=== PATIENT | male | born 1950 | race Caucasian/White ===

== ENCOUNTER → 2020-04-02 | Outpatient (CLI) | payer OTHER ==
--- NOTE | 2020-04-02 14:57 | MR ---
EXAMINATION TYPE: MR shoulder LT wo con DATE OF EXAM: 04/02/2020 1:23 PM COMPARISON: NONE HISTORY: PAIN IN LEFT SHOULDER TECHNIQUE: Multiplanar multispin echo imaging of the left shoulder was performed. FINDINGS: Rotator cuff : There is thickening and heterogeneity of the supraspinatus tendon compatible with lead java programmer wen tendinopathy. There is a full thickness partial tear involving the anterior aspect of the suprasp inatus tendon. Subscapularis and infraspinatus tendons are intact. Bursa: Small joint effusion identified. Musculature: There is no muscular tear, contusion, or atrophy. Acromioclavicular joint : There is AC joint arthropathy with lateral downsloping of the acromion resu lting in moderate impingement. Osseous structures : There are no fractures or regions of abnormal bon e marrow signal intensity. Long biceps tendon : The biceps tendon is normally situated within the bicipital groove. No complete or partial biceps tendon tear is present. Glenohumeral Joint fluid : There is no glenohumeral joint effusion. Cartilage and Bone : No focal hyaline cartilage defects are noted. No Hill-Sachs, reverse Hill-Sachs, or bony Bankart lesions are seen. Labrum : There are no SLAP or soft tissue Bankart lesions. No paralabral cysts are seen. OTHER FINDINGS : none IMPRESSION: 1. There is thickening and heterogeneity of the supraspinatus tendon compatible with chronic tendinop athy. There is a full thickness partial tear involving the anterior aspect of the supraspinatus tendo n. Moderate subacromial impingement.
== END | disposition home or self-care (01) ==
LOC: RADMRIMAIN 12:03
PROVIDERS: ATTEND Nurse Practitioner Acute Care
DX: M75.112 Incomplete rotator cuff tear or rupture of left shoulder, not specified as traumatic (principal); M75.42 Impingement syndrome of left shoulder; M67.814 Other specified disorders of tendon, left shoulder

== ENCOUNTER → 2020-06-12 | Outpatient (CLI) | payer OTHER, MEDICARE ==
[2020-06-12 10:51] LABS: Basophils % (A) 1 %; Eosinophils # (A) 0.2 k/uL (0-0.7); Eosinophils % (A) 4 %; HCT 46.7 % (39.0-53.0); HGB 15.9 gm/dL (13.0-17.5); Lymphocytes # (A) 1.4 k/uL (1.0-4.8); Lymphocytes % (A) 29 %; MCH 31.5 pg (25.0-35.0); MCHC 34.1 g/dL (31.0-37.0); MCV 92.6 fL (80.0-100.0); Mean Platelet Volume 7.4; Monocytes # (A) 0.4 k/uL (0-1.0); Monocytes % (A) 8 %; Neutrophils # (A) 2.8 k/uL (1.3-7.7); Neutrophils % (A) 57 %; Platelet Count 201 k/uL (150-450); RBC 5.04 m/uL (4.30-5.90); RDW 12.6 % (11.5-15.5); WBC 4.9 k/uL (3.8-10.6)
[2020-06-12 10:59] LABS: Potassium 4.2 mmol/L (3.5-5.1)
== END | disposition home or self-care (01) ==
LOC: LABPAT 09:58
PROVIDERS: ATTEND Orthopaedic Surgery
DX: Z01.818 Encounter for other preprocedural examination (principal); M75.42 Impingement syndrome of left shoulder; R00.1 Bradycardia, unspecified; R94.31 Abnormal electrocardiogram [ECG] [EKG]
CPT/HCPCS: 80051; 85025; 93005

== ENCOUNTER 2020-07-04 05:50 | Day surgery (SDC) | payer MEDICARE, OTHER ==
[2020-06-20 12:28] VITALS: BMI 30.8
--- NOTE | 2020-07-03 18:37 | HP ---
HISTORY AND PHYSICAL DATE OF SURGERY: 07/04/2020 Lazaro Mendez is a 70-year-old gentleman seen with progressive left shoulder pain. We discussed options for treatment. He elected to proceed with arthroscopy. Consent was obtained. Cardiac clearance was provided by Dr. Dutta. PAST MEDICAL HISTORY: Coronary artery disease, hypertension, hyperlipidemia. PAST SURGICAL HISTORY: Cardiac catheterization, left knee arthroscopy. DAILY MEDICATIONS: Aspirin, atorvastatin, metoprolol, Nitrostat. SOCIAL HISTORY: He denies tobacco use. PHYSICAL EVALUATION OF THE LEFT SHOULDER: Flexion 90 degrees. Abduction is 90 degrees. External rotation is 50 degrees with weakness. Tenderness along the anterolateral acromion and rotator cuff insertion site. Impingement is positive at 90. Drop-arm sign positive. Distal neurovascular exam is intact. RADIOGRAPHS: Left shoulder radiographs revealed a type 2 acromion, acromioclavicular joint osteoarthritis and cystic changes of the greater tuberosity. Left shoulder MRI revealed rotator cuff tear, impingement and acromioclavicular joint osteoarthritis. IMPRESSION: 1. Left shoulder impingement with rotator cuff tear. 2. Left shoulder acromioclavicular joint osteoarthritis. 3. Hypertension. 4. Hyperlipidemia. PLAN: Left shoulder arthroscopy with subacromial decompression, arthroscopic rotator cuff repair, Raine procedure and debridement. MMODL / IJN: [id number] /
[2020-07-04] MEDS ORDERED: LACTATED RINGERS 1,000 ML IV SCH (06:11)
[2020-07-04] MEDS ORDERED: HYDROmorphone 0.5 MG/0.5 ML SYRINGE IVP PRN (06:11)
[2020-07-04] MEDS ORDERED: ONDANSETRON 4 MG/2 ML VIAL IVP ONE (06:11)
[2020-07-04] MEDS ORDERED: MIDAZOLAM 2 MG/2 ML VIAL IV PRN (06:11)
[2020-07-04] MEDS ORDERED: DEXAMETHASONE SOD PHOSPHATE 4 MG/ML 1 ML VIAL IV ONE (06:11)
[2020-07-04] MEDS ORDERED: fentaNYL (PF) 50 MCG/ML 2 ML AMP IV ONE (07:06)
--- NOTE | 2020-07-04 08:22 | P.ANPRN ---
Procedure Note - Anesthesia - Nerve Block Performed Left Interscalene Single Time Out Performed: Yes ([id number]) Date of Procedure: 07/04/20 Procedure Start Time: 07:06 Procedure Stop Time: 07:10 Location of Patient: PreOp Indication: Acute Post-Operative Pain, Requested by Surgeon Specifically requested for management of pain by DrLarry: Shaka Blue Sedation Type: Sedate with meaningful contact maintained Preparation: Sterile Prep Position: Supine Catheter: None Needle Types: Pajunk Needle Gauge: 21 Ultrasound used to visualize needle placement: Yes Ultrasound used to observe medication spread: Yes Injectate: 0.5% Ropivacaine (see comment for volume) (30cc +decadron 4 cc) Blood Aspirated: No Pain Paresthesia on Injection Noted: No Resistance on Injection: Normal Image Stored and Saved: Yes Events: Uneventful and Well Tolerated
--- NOTE | 2020-07-04 09:48 | P.OP ---
Date of Procedure: 07/04/20 Preoperative Diagnosis: Left shoulder impingement Postoperative Diagnosis: 1. Left shoulder rotator cuff tear 2. Left shoulder impingement 3. Left shoulder acromioclavicular joint osteoarthritis 4. Left shoulder partial long head biceps tendon tear Procedure(s) Performed: 1. Left shoulder arthroscopic rotator cuff repair 2. Left shoulder arthroscopic subacromial decompression 3. Left shoulder arthroscopic Raine procedure 4. Left shoulder arthroscopic biceps tenotomy Implants: 34.75 Arthrex swivel lock anchors Anesthesia: GETA, regional (Interscalene block) Surgeon: Shaka Blue Packaging Line Operator #1: Dave Hook Estimated Blood Loss (ml): 11 Pathology: none sent Condition: stable Disposition: PACU Indications for Procedure: 70-year-old patient seen with progressive left shoulder pain. After treatment options were discussed, he elected to proceed with arthroscopy Operative Findings: see description of procedure Description of Procedure: Patient underwent an interscalene block by department of anesthesia. The patient was then taken to the operative suite. The patient underwent a general anesthetic by the department of anesthesia. The patient was placed into a lateral position and secured. There was appropriate padding of the bony prominence. Left shoulder was then prepped and draped in normal sterile orthopedic fashion. We placed the extremity in 10 pounds of longitudinal traction. A posterior incision was now made for a posterior working portal site. The trocar and cannula were inserted into the glenohumeral joint. Arthroscopy was initiated. Spinal needle was now inserted anteriorly, to ascertain the anterior working portal site. An incision was now made in that area, a trocar was inserted followed by a probe. There was a large rotator cuff tear I couldn't visualize from the glenohumeral joint. There were grade 1 chondromalacia changes of the glenohumeral joint. There was hyperemia and partial tearing long head biceps tendon. There was some mild fraying of the superior labrum. I performed a biceps tenotomy. I debrided the anterior superficial fraying anterior labrum. The residual labrum was stable. Instruments now removed from glenohumeral joint. Utilizing the posterior working portal site, the trocar and cannula were inserted into the subacromial space. Arthroscopy initiated. I made an incision 2 fingerbreadths lateral to the acromion. I introduced my trocar followed by my ArthroCare ablator. I now began ablating thick subacromial bursal tissue, which exposed the undersurface of the anterior acromion. There was diminished subacromial space. There was a very prominent anterior acromion. A motorized bur was introduced and a subacromial decompression was performed. I also excised some osteophytes off the inferior aspect of the distal clavicle. The AC joint was visualized and noted to be fairly arthritic. The motorized bur was introduced in the anterior portal site and a Raine procedure was performed without difficulty, decompressing the AC joint nicely. I turned my attention to the rotator cuff. There was a massive rotator cuff tear with severe retraction beyond the glenoid. The tear measured 4 cm and again retracted beyond the glenoid. I could not pull it over the footprint. I now began meticulously releasing the tendon and selected approximate with [id number] repair for the proximal portion of this large tear. I now with the assistance of Dave CORTEZ passed 5 [id number] sutures through good bites a tendon. I now passed an additional 3 everted mattress sutures were approximate. I now repaired the tendon in a [id number] fashion with good approximation of the tendon. I now repaired the tendon back to the footprint utilizing 3-4.75 Arthrex swivel lock anchors with those residual 3 everted mattress sutures tacking the tendon down the footprint nicely. Residual suture limbs were clipped. We had good compression of the tendon along the entire footprint. Instruments now removed from the portal sites. All portal sites were approximated with nylon suture. Sterile dressings were applied followed by a shoulder sling. Dave CORTEZ assisted in this complex case. The patient was awakened, transferred to a bed, and taken to recovery in stable condition.
[2020-07-04 09:50] VITALS: RESP 16; TEMP 97
[2020-07-04 11:08] VITALS: BP 131/72; PULSE 78
== END 2020-07-04 11:37 | disposition home or self-care (01) ==
LOC: OR 05:50
PROVIDERS: ATTEND Orthopaedic Surgery
DX: M75.102 Unspecified rotator cuff tear or rupture of left shoulder, not specified as traumatic (principal); M19.012 Primary osteoarthritis, left shoulder; S46.112A Strain of muscle, fascia and tendon of long head of biceps, left arm, initial encounter; X58.XXXA Exposure to other specified factors, initial encounter; I35.9 Nonrheumatic aortic valve disorder, unspecified; E78.00 Pure hypercholesterolemia, unspecified; I25.10 Atherosclerotic heart disease of native coronary artery without angina pectoris; I77.9 Disorder of arteries and arterioles, unspecified; Z81.8 Family history of other mental and behavioral disorders; Z82.49 Family history of ischemic heart disease and other diseases of the circulatory system; Z80.1 Family history of malignant neoplasm of trachea, bronchus and lung; Z90.89 Acquired absence of other organs; Z98.890 Other specified postprocedural states; I10 Essential (primary) hypertension; J30.2 Other seasonal allergic rhinitis; Z95.5 Presence of coronary angioplasty implant and graft; E78.5 Hyperlipidemia, unspecified; Z88.8 Allergy status to other drugs, medicaments and biological substances; Z79.82 Long term (current) use of aspirin; Z79.899 Other long term (current) drug therapy
CPT/HCPCS: 64415; 76942; 29826; 29827; 29824; C1713 ×2; J2250; J1100; J0690; J2405; J3010

== ENCOUNTER → 2021-06-25 | Outpatient (CLI) | payer MEDICARE ==
[2021-06-25 23:31] LABS: Basophils # (A) 0.06 X 10*3/uL (0.00-0.10); Basophils % (A) 0.8 %; Eosinophils % (A) 2.7 %; HCT 46.9 % (39.6-50.0); HGB 15.4 g/dL (13.0-17.0); Immature Grans, Automated 0.4 %; Lymphocytes # (A) 1.55 X 10*3/uL (0.90-5.00); Lymphocytes % (A) 20.6 %; MCH 30.4 pg (27.0-32.0); MCHC 32.8 g/dL (32.0-37.0); MCV 92.7 fL (80.0-97.0); Mean Platelet Volume 10.2 fL (9.5-12.2); Monocytes % (A) 10.6 %; NRBC Per 100 WBC 0 /100 WBCS (0.0-0.0); Neutrophils # (A) 4.89 X 10*3/uL (1.80-7.70); Neutrophils % (A) 64.9 %; Platelet Count 218 X 10*3/uL (140-440); RBC 5.06 X 10*6/uL (4.40-5.60); RDW 13.2 % (11.5-14.5); WBC 7.53 X 10*3/uL (4.50-10.00)
[2021-06-25 23:48] LABS: Albumin 4.4 g/dL (3.8-4.9); Anion Gap 14.2 mmol/L (10.00-18.00); BUN/Creat Ratio 12.9 Ratio (12.00-20.00); Blood Urea Nitrogen 13.8 mg/dL (9.0-27.0); Calcium 9.8 mg/dL (8.7-10.3); Carbon Dioxide 23.3 mmol/L (20.0-27.5); Globulin 2.2 g/dL (1.6-3.3); Potassium 4.8 mmol/L (3.5-5.5); Total Bilirubin 0.6 mg/dL (0.30-1.20); Total Protein 6.6 g/dL (6.2-8.2)
== END | disposition home or self-care (01) ==
LOC: LABWHC1 15:00
PROVIDERS: ATTEND Internal Medicine Cardiovascular Disease
DX: I25.10 Atherosclerotic heart disease of native coronary artery without angina pectoris (principal); I48.91 Unspecified atrial fibrillation
CPT/HCPCS: 36415; 80053; 83880; 85025

== ENCOUNTER 2021-08-01 08:48 | Day surgery (SDC) | payer MEDICARE ==
[2021-07-30 17:24] VITALS: BMI 30.1
[~2021-08-01 08:48] MED LIST: SODIUM CHLORIDE 0.9% 1,000 ML IV SCH
[2021-08-01] MEDS ORDERED: SODIUM CHLORIDE 0.9% 500 ML IV ONE (09:04)
[2021-08-01 09:13] VITALS: RESP 16; TEMP 97.9
[2021-08-01 09:33] LABS: Calcium 8.9 mg/dL (8.4-10.2); Potassium 4.2 mmol/L (3.5-5.1)
[2021-08-01] MEDS ORDERED: LIDOCAINE 1% INJ 10MG/ML (20 ML MDV) ONE (10:32)
[2021-08-01] MEDS ORDERED: PROPOFOL 10 MG/ML 20 ML VIAL IV ONE (10:32)
[2021-08-01] MEDS ORDERED: BENZOCAINE SPRAY 1 CAN TOPICAL ONE (10:35)
[2021-08-01] MEDS ORDERED: SODIUM CHLORIDE 0.9% 1,000 ML IV SCH (11:45)
[2021-08-01 13:03] VITALS: BP 107/68; PULSE 66
--- NOTE | 2021-08-16 17:09 | P.PCN ---
Date of Procedure: 08/01/21 Preoperative Diagnosis: Atrial fibrillation with controlled ventricular response, aortic stenosis Postoperative Diagnosis: Successful cardioversion to sinus rhythm Procedure(s) Performed: MYAH followed by cardioversion Description of Procedure: INDICATION: This is a 71-year-old gentleman with history of cardiomyopathy and atrial fibrillation which is newly detected. Patient is adequately anticoagulated and advised to have cardioversion CONSENT: Informed consent was obtained from the patient PROCEDURE: . Patient was brought to the lab in a fasting state. He was prepped and draped in the usual fashion. The throat was sprayed with Hurricaine. Department of anesthesia provided anesthesia. A lubricated Omni probe was introduced in the oropharynx and was advanced into the esophagus. Multiple views were obtained. Patient tolerated the procedure well FINDINGS: . The aortic valve is sclerotic with reduced opening excursion. By planimetry valve area of 1.6 cm were obtained. There is biatrial enlargement. Left ventricle is mildly dilated with mildly impaired LV function. Left atrial appendage is free of any clot. No evidence of an PFO. A saline contrast bubble injection did not show any crossing of the bubbles. Mild mitral regurgitation IMPRESSION: #1. No clot in left atrial appendage. #2. Left atrial enlargement #3. Mildly impaired LV function #4. No PFO #5. Moderate aortic stenosis PLAN: Proceed with cardioversion.
--- NOTE | 2021-08-16 17:11 | P.PCN ---
Date of Procedure: 08/16/21 Preoperative Diagnosis: Atrial fibrillation Postoperative Diagnosis: Conversion to sinus rhythm Procedure(s) Performed: Cardioversion preceded by MYAH Description of Procedure: This patient had a MYAH and was noted to have moderate aortic stenosis. No clot in the left atrial appendage. Subsequently anterior posterior paddles were applied. A synchronized shock of 100 J was applied. Patient converted to sinus rhythm. No immediate complications. Final impression: #1. Successful cardioversion. Plan: Patient will monitor for the next couple of hours. If stable patient be discharged home. Continue current medical therapy. Follow up with Dr. Bustillos in one week
--- NOTE | 2021-08-22 09:28 | CDI ---
Cassandra Bass [address] [place] [address] Date: 08/22/2021 08:57:00 AM From: Maribell Hector Phone: Admit Date: 08/01/2021 08:48:00 AM Patient Name: Lazaro Mendez Visit Number: [id number] Discharge Date: Payor: MEDICARE HMO Dr. Alcon Dutta Pt had MYAH echo with color ,pulsed and continuous wave doppler along with saline bubble injection. Please provide clarification on exactly views an wha steps of the MYAH were performed. Please specify which of the followinig, if any were performed. 74015- Echocardiography, transesophageal, real time with documentation (2D) (with or without M-mode recoding) including probe placement, image acquisition, interpretation and report. 34550 -, Doppler echocardiography, pulsed wave and.or continuous wave with spectral complete [id number] - Doppler echocardiography color flow velocity mapping Please respond below the line at the bottom. Thank you for your kind consideration. MTDD
== END 2021-08-01 12:30 | disposition home or self-care (01) ==
LOC: CATHCVL 08:48
PROVIDERS: ATTEND Internal Medicine Cardiovascular Disease
DX: I48.19 Other persistent atrial fibrillation (principal); I35.0 Nonrheumatic aortic (valve) stenosis; E78.5 Hyperlipidemia, unspecified; I25.10 Atherosclerotic heart disease of native coronary artery without angina pectoris; Z95.5 Presence of coronary angioplasty implant and graft; Z20.822 Contact with and (suspected) exposure to COVID-19; Z82.49 Family history of ischemic heart disease and other diseases of the circulatory system; E78.00 Pure hypercholesterolemia, unspecified; Z79.82 Long term (current) use of aspirin; Z79.899 Other long term (current) drug therapy
CPT/HCPCS: 93312; 93320; 93325; 92960; 80048; 87635; J2001; J2704

== ENCOUNTER 2022-05-07 07:59 | Day surgery (SDC) | payer MEDICARE ==
[2022-05-05 15:41] VITALS: BMI 32.0
[~2022-05-07 07:59] MED LIST changes: +LACTATED RINGERS 1,000 ML IV SCH; +LIDOCAINE 1% (10MG/ML) FOR IV START INTRADERMA PRN; +ONDANSETRON 4 MG/2 ML VIAL IVP PRN; -SODIUM CHLORIDE 0.9% 1,000 ML IV SCH
[2022-05-07 08:52] VITALS: TEMP 97
[2022-05-07] MEDS ORDERED: PROPOFOL 10 MG/ML 20 ML VIAL IV ONE (09:06)
--- NOTE | 2022-05-07 09:32 | P.PCN ---
Date of Procedure: 05/07/22 Procedure(s) Performed: BRIEF HISTORY: Patient is a 72-year-old pleasant white male scheduled for an elective colonoscopy as a part of screening for colon cancer. PROCEDURE PERFORMED: Colonoscopy with snare polypectomy. PREOPERATIVE DIAGNOSIS: Screening for colon cancer. IV sedation per Anesthesia. PROCEDURE: After informed consent was obtained, the patient, was brought into the endoscopy unit. IV sedation was administered by Anesthesia under continuous monitoring. Digital rectal examination was normal. Initially the Olympus CF-160 flexible video colonoscope was then inserted in the rectum, gradually advanced into the cecum without any difficulty. Careful examination was performed as the scope was gradually being withdrawn. Ileocecal valve and the appendiceal orifice were visualized and appeared normal. Prep was excellent. Mucosa of the cecum, appeared normal. Ascending colon there was a 3 mm and 5 mm polyp removed by snare polyp at the mid. In the transverse colon there was a 5 mm and 1 cm broad-based polyps removed by snare polypectomy. The rest of the ascending colon, transverse colon, descending colon, appeared normal. In the sigmoid colon there were 4 polyps measuring between 5 limited sessile 7 mm in size removed by snare polypectomy. Rest of the sigmoid colon, and rectum appeared normal. Retroflexion was performed in the rectum and no lesions were seen. The patient tolerated the procedure well. IMPRESSION: 5 mm and 3 mm ascending colon polyp status post polypectomy 5 mm and 1 cm transverse colon polyp status post polypectomy 4 polyps in the sigmoid colon measuring between 5 mm and 7 mm in size status post polypectomy RECOMMENDATIONS: Findings of this examination were discussed with the patient as well as his family. He was advised to follow with the biopsy results. If the biopsy results adenoma he can have a repeat colonoscopy in 3 years.
[2022-05-07 09:35] VITALS: RESP 16
[2022-05-07 09:49] VITALS: BP 142/74; PULSE 60
== END 2022-05-07 10:46 | disposition home or self-care (01) ==
LOC: ORWHC2ENDO 07:59
PROVIDERS: ATTEND Internal Medicine Gastroenterology
DX: Z12.11 Encounter for screening for malignant neoplasm of colon (principal); D12.2 Benign neoplasm of ascending colon; D12.5 Benign neoplasm of sigmoid colon; I10 Essential (primary) hypertension; E78.5 Hyperlipidemia, unspecified; I25.10 Atherosclerotic heart disease of native coronary artery without angina pectoris; I48.91 Unspecified atrial fibrillation; I35.1 Nonrheumatic aortic (valve) insufficiency; Z79.899 Other long term (current) drug therapy; Z79.01 Long term (current) use of anticoagulants
CPT/HCPCS: 88305; 45385; J2704

== ENCOUNTER → 2023-07-31 | Outpatient (CLI) | payer OTHER ==
--- NOTE | 2023-07-31 12:15 | US ---
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 CAD. History of: Smoker: No Hypertension: No Diabetic: No Hyperlipidemia: Yes TIA/CVA: No Previous Vascular Surgery: No CAD: Yes Vascular Ulcers: No Claudication: No Gangrene: No Doppler Waveforms: Right: Triphasic at the ankle Left: Triphasic at the ankle Right Brachial Pressure: 174 Left Brachial Pressure: 172 Ankle-Brachial Indices: Right: 1.1 Left: 1.0 (Vessel hardening > 1.4; Normal 0.9 - 1.4, Moderate 0.7 - 0.9, Severe 0.5-0.7) IMPRESSION: No evidence of significant peripheral artery disease based on ankle/ brachial indices.
--- NOTE | 2023-07-31 12:30 | US ---
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 No redness or swelling. SIDE PERFORMED: Bilateral TECHNIQUE: The lower extremity deep venous system is examined utilizing real time linear array sonog kaya with graded compression, doppler sonography and color-flow sonography. VESSELS IMAGED: Common Femoral Vein Deep Femoral Vein Greater Saphenous Vein * Femoral Vein Popliteal Vein Small Saphenous Vein * Proximal Calf Veins (* superficial vessels) The deep venous systems of the lower extremities from the common femoral veins to the proximal calf v eins are patent and compressible with augmentable flow and normal waveforms. IMPRESSION: No evidence of bilateral lower extremity DVT from the common femoral veins to the proximal calf veins .
== END | disposition home or self-care (01) ==
LOC: RADUSWWP 09:37
DX: I83.10 Varicose veins of unspecified lower extremity with inflammation (principal)
CPT/HCPCS: 93922; 93970

== ENCOUNTER → 2023-08-11 | Outpatient (CLI) | payer MEDICARE ==
[2023-08-11 14:50] LABS: HCT 44.9 % (39.6-50.0); MCH 31.1 pg (27.0-32.0); MCHC 33.4 g/dL (32.0-37.0); MCV 93.2 FL (80.0-97.0); Mean Platelet Volume 10.2 FL (9.5-12.2); NRBC Per 100 WBC 0 X 10*3/uL (0.00-0.01); Platelet Count 201 X 10*3/uL (140-440); RBC 4.82 X 10*6/uL (4.40-5.60); RDW 12.5 % (11.5-14.5); WBC 6.32 X 10*3/uL (4.50-10.00)
[2023-08-11 16:05] LABS: Blood Urea Nitrogen 16.7 mg/dL (9.0-27.0); Carbon Dioxide 26.4 mmol/L (21.6-31.8); Chloride 102 mmol/L (96-109); Potassium 4.6 mmol/L (3.5-5.5); Sodium 141 mmol/L (135-145)
== END | disposition home or self-care (01) ==
LOC: LABPAT 07:16
PROVIDERS: ATTEND Internal Medicine
DX: Z01.812 Encounter for preprocedural laboratory examination (principal); I35.0 Nonrheumatic aortic (valve) stenosis; R06.02 Shortness of breath
CPT/HCPCS: 36415; 80051; 82565; 84520; 85027

== ENCOUNTER 2023-08-17 10:04 | Day surgery (SDC) | payer MEDICARE, OTHER ==
[~2023-08-17 10:04] MED LIST changes: +ALPRAZolam 0.25 MG TAB PO PRN; +ALPRAZolam 0.5 MG TAB PO PRN; +ASPIRIN 325 MG TAB PO STA; +HEPARIN SODIUM,PORCINE (1 ML) 2,500 UNIT in SODIUM CHLORIDE 0.9% 250 ML IRRIGATION PRN; +HEPARIN SODIUM,PORCINE 10,000 UNIT in SODIUM CHLORIDE 0.9% 1,000 ML IRRIGATION PRN; -LACTATED RINGERS 1,000 ML IV SCH; -LIDOCAINE 1% (10MG/ML) FOR IV START INTRADERMA PRN; +NITROGLYCERIN SL TABS 0.4 MG TAB SUBLINGUAL PRN; -ONDANSETRON 4 MG/2 ML VIAL IVP PRN
[2023-08-17] MEDS: SODIUM CHLORIDE 0.9% 1,000 ML in EMPTY BAG 1 BAG IV SCH (10:38)
[2023-08-17 11:19] VITALS: RESP 18; TEMP 98.3
[2023-08-17] MEDS ORDERED: LIDOCAINE 1% INJ 10MG/ML (20 ML MDV) ONE ×2 (11:35→12:12)
[2023-08-17] MEDS ORDERED: VERAPAMIL 2.5 MG/ML 2 ML AMP ONE ×2 (11:35→12:12)
[2023-08-17] MEDS ORDERED: fentaNYL (PF) 50 MCG/ML 2 ML AMP ONE (12:27)
[2023-08-17] MEDS ORDERED: HEPARIN SODIUM 1,000 UN/ML (10ML VL) ONE (12:27)
[2023-08-17] MEDS: BENZOCAINE SPRAY 1 CAN TOPICAL ONE ×3 (12:33→12:36)
[2023-08-17] MEDS: SODIUM CHLORIDE 0.9% 1,000 ML IV ONE (12:33)
[2023-08-17] MEDS: MIDAZOLAM 2 MG/2 ML VIAL IVP ONE ×3 (12:34→12:40)
[2023-08-17] MEDS: fentaNYL (PF) 50 MCG/ML 2 ML AMP IVP ONE ×2 (12:35→12:40)
[2023-08-17] MEDS: LIDOCAINE 1% INJ 10MG/ML (20 ML MDV) SQ ONE (13:06)
[2023-08-17] MEDS: VERAPAMIL SYRINGE (5 MG/10 ML) INTRAARTER ONE (13:09)
[2023-08-17] MEDS: HEPARIN SODIUM 1,000 UN/ML (10ML VL) IVP ONE ×2 (13:12→13:22)
[2023-08-17] MEDS: HEPARIN SODIUM,PORCINE 5,000 UNIT/ML 1 ML VIAL IV ONE (13:37)
[2023-08-17] MEDS: ADENOSINE 90 MG in SODIUM CHLORIDE 0.9% 60 ML IVP ONE (13:44)
[2023-08-17] MEDS: IOPAMIDOL-370 100ML BTL INJ ONE (13:59)
[2023-08-17] MEDS: SODIUM CHLORIDE 0.9% 500 ML 500 ML IV ONE (15:30)
[2023-08-17] MEDS: METOPROLOL TARTRATE 50 MG TAB PO STA (17:00)
[2023-08-17 17:32] VITALS: BP 174/75; PULSE 64
--- NOTE | 2023-08-17 22:50 | P.TEE ---
Description of Procedure(s): Procedure performed: Transesophageal Echocardiogram with color flow doppler, pulsed wave doppler and continuous wave doppler, moderate conscious sedation Moderate conscious sedation: Moderate conscious sedation was supplied with direct supervision of myself using Versed and Fentanyl. Complications: none Indications: Aortic stenosis PROCEDURE: After the risks, benefits and alternatives of the above mentioned procedure was explained in detail with the patient, informed consent was obtained. Patient was brought to the lab in a fasting state. Patient was given IV Versed and Fentanyl for sedation. The throat was sprayed with Hurricane to anesthetize the throat. A lubricated Omni probe was then introduced into the esophagus and stomach and multiple views were obtained. 2D echo with color flow doppler, pulsed wave doppler and continuous wave doppler was utilized. Patient's BP was signficantly elevated at 190's during MYAH. Agitated saline bubbles were injected to assess for any intra-atrial shunt. The probe was then removed. Patient tolerated the procedure well. Patient was transferred to the post procedure area in stable and satisfactory condition. FINDINGS: 1. The aortic valve is tricuspid with moderate aortic stenosis with CHALO 1.4cm2 by planimetry. There is moderate to severe aortic insufficiency which may be influenced by blood pressure. There is partial diastolic flow reversal of the descending aorta. 2. The mitral valve appears be normal with moderate mitral regurgitation. 3. Tricuspid valve appears to be normal with mild to moderate tricuspid regurgitation 4. The interatrial septum is intact. No evidence of PFO. 5. Left atrial appendage is free of clot. 6. Left ventricular EF is 55% without wall motion abnormalities.
--- NOTE | 2023-08-17 23:22 | P.CARDCATH ---
Description of Procedure: PROCEDURES PERFORMED: Left heart catheterization, bilateral coronary angiography, ultrasound guided arterial access, iFR of RCA, LAD, circumflex. FFR of the LAD. INDICATION: Aortic stenosis, dyspnea CONSENT:I have discussed the risks, benefits and alternative therapies for the above-mentioned procedure and for both sedation/analgesia as well as necessary blood product administration, if indicated, as they pertain to this patient. The patient has indicated understanding and acceptance of the risks and procedures discussed. PROCEDURE: After the risks, benefits and alternatives of the above mentioned procedure explained in detail with the patient, informed consent was obtained. Patient was taken to the catheterization lab and prepped and draped in usual fashion. Ultrasound guidance was used to assess for arterial access. 1% lidocaine was used to anesthetize the right radial artery. A 6-Vincentian sheath was placed in the right radial artery using modified Seldinger technique and ultrasound guidance. Left coronary angiography was performed with a 5-Vincentian JL 3.5 catheter and right coronary angiography was performed with a 5-Vincentian FR5 catheter in various views. A 5-Vincentian FR5 catheter was inserted into the left ventricle and pressure measurements were obtained. The decision was made to perform iFR of the LAD, circumflex, RCA. Heparin was given. Using the FR5 and FL3.5 catheters a 0.014 pressure wire was advanced into the proximal RCA and left main then advanced 1 cm distal to the LAD, circumflex and RCA lesions. iFR circumflex was 0.97 and iFR RCA was 0.93. The LAD lesion iFR was abnormal at 0.85 however only appeared to be 40-50% and therefore decision was made to perform FFR. A 6Fr CLS 3.5 guide was used to engage the left main. A 0.014 pressure wire was again advanced into the left main and normalized. The wire was advanced into the mid to distal LAD 1 cm distal to the lesion and iFR was now normal at 0.96. Therefore FFR was also performed which showed normal at 0.90. There was no drift. Therefore no intervention was recommended. The BP was significantly elevated and elevated LVEDP and felt best treated medically. The right radial sheath was removed and a TR band was placed with hemostasis achieved. The patient tolerated the procedure well. Patient was transported back to the post catheterization holding area in stable condition. Conscious Sedation: Patient was monitored under the direct supervision of myself for conscious sedation using Versed and fentanyl for a total duration of 43 minutes HEMODYNAMICS: Ao: 151/71 LV: 163/3, LVEDP 18. There is 16mmHg gradient across the aortic valve SELECTIVE CORONARY ARTERIOGRAPHY: LEFT MAIN: The left main is a large caliber vessel which bifurcates into the LAD and circumflex. There is no significant stenosis. LEFT ANTERIOR DESCENDING CORONARY ARTERY: LAD is a large caliber vessel which wraps around to the apex. There is a mid LAD stent with a mid LAD instent 50% stenosis and a 30% mid to distal LAD stenosis. LEFT CIRCUMFLEX CORONARY ARTERY: Left circumflex is a moderate caliber vessel with a 40-50% proximal circumflex stenosis and otherwise mild luminal irregularities. RIGHT CORONARY ARTERY: The right coronary artery is a large caliber vessel which gives off a PDA and PLV branch and is the dominant vessel. There is proximal 50% RCA stenosis. FINAL IMPRESSION: 1. CAD as described above with 50% mid LAD instent stenosis, 40-50% proximal circumflex stenosis, and proximal 50% RCA stenosis 2. Mildly elevated left sided filling pressures 3. Moderate aortic stenosis 4. Elevated BP throughout procedure 5. iFR LAD, RCA, circumflex normal PLAN: 1. Aggressive risk factor modification per most recent ACC/AHA guidelines. 2. Given normal iFR continue with medical therapy 3. Elevated BP and add Norvasc for antianginal medications. Consider increasing diuretics.
== END 2023-08-17 17:26 | disposition home or self-care (01) ==
LOC: CATHCVL 10:04
PROVIDERS: ATTEND Internal Medicine
DX: I35.0 Nonrheumatic aortic (valve) stenosis (principal); I25.10 Atherosclerotic heart disease of native coronary artery without angina pectoris
CPT/HCPCS: 93312; 93320; 93325; 93571; 93458; 93799; 76937; J2250; J1644 ×2; J2001; J3010; J0153; Q9967

== ENCOUNTER → 2023-11-24 | Outpatient (CLI) | payer OTHER, MEDICARE ==
--- NOTE | 2023-12-20 00:01 | CT ---
EXAMINATION TYPE: CT abdomen pelvis w con CT DLP: 2152.30 mGycm, Automated exposure control for dose reduction was used. DATE OF EXAM: 11/24/2023 COMPARISON: None CLINICAL INDICATION: Male, 73 year old with history of scrotal enlargement, CVI; TECHNIQUE: Standard CT of the abdomen and pelvis following the administration of 100 cc of Isovue 300 IV contrast material and oral contrast. Coronal and sagittal reformats were performed. FINDINGS: LOWER CHEST: Posterior dependent subsegmental atelectasis is noted. Right anterior midlung calcified granuloma. Cardiomegaly. Aortic valvular calcifications. 3 vessel coronary arterial calcifications. ABDOMEN LIVER: Unremarkable GALLBLADDER AND BILE DUCTS: Unremarkable. PANCREAS: Unremarkable. SPLEEN: Unremarkable. ADRENAL GLANDS: Unremarkable. KIDNEYS AND URETERS: No evidence of hydronephrosis or renal calculus. The ureters are unremarkable. W ithout focal lesion. Heterogeneously enhancing mass identified within the lower pole of the left kidn ey extending into the renal sinus measuring 7.5 x 7.3 x 7.9 cm in AP, TV, CC dimension. Central low a ttenuation likely representing necrosis. This abuts the left gonadal vein (series 7, image 58) Contra st is demonstrated throughout both ureters on the delayed phase. Left renal vein appears patent paten t without definitive neoplastic involvement. PELVIS BLADDER: Mixing artifact identified within the bladder on the delayed phase. Limits evaluation for in traluminal masses. REPRODUCTIVE: Prostate is enlarged in size measuring 5.5 cm in transverse dimension. ABDOMEN & PELVIS STOMACH AND BOWEL: Stomach is unremarkable. Periampullary duodenal diverticulum. Enteric contrast payal ches the distal small bowel. No focal bowel wall thickening or surrounding inflammatory changes. The appendix appears within normal limits. No evidence of bowel obstruction. PERITONEUM: No evidence of pneumoperitoneum or free fluid. VASCULATURE: Mild atherosclerotic calcifications are present throughout the abdominal aorta and its b ranches. No evidence of aortic aneurysm. Dilated left scrotal venous vasculature. Dilated superficial left superior thigh venous vasculature. MUSCULOSKELETAL: No acute osseous abnormalities LYMPH NODES: No evidence for lymphadenopathy. SOFT TISSUE/ABDOMINAL WALL: Unremarkable IMPRESSION: 1. Left renal inferior pole 7.9 cm enhancing mass most consistent with renal cell carcinoma until pro konstantin otherwise. Urology consult is recommended. 2. No lymphadenopathy identified. 3. Left scrotal and left proximal thigh superficial venous dilatation identified likely related to #1 .
== END | disposition home or self-care (01) ==
LOC: RADCTMAIN 09:15
PROVIDERS: ATTEND Surgery
DX: N50.89 Other specified disorders of the male genital organs (principal); N28.9 Disorder of kidney and ureter, unspecified
CPT/HCPCS: 74177; 36415; Q9967

== ENCOUNTER 2023-12-02 14:48 | Observation (INO) | payer MEDICARE, OTHER ==
[~2023-12-02 14:48] MED LIST changes: -ALPRAZolam 0.25 MG TAB PO PRN; -ALPRAZolam 0.5 MG TAB PO PRN; -ASPIRIN 325 MG TAB PO STA; -HEPARIN SODIUM,PORCINE (1 ML) 2,500 UNIT in SODIUM CHLORIDE 0.9% 250 ML IRRIGATION PRN; -HEPARIN SODIUM,PORCINE 10,000 UNIT in SODIUM CHLORIDE 0.9% 1,000 ML IRRIGATION PRN; +HEPARIN SODIUM,PORCINE 5,000 UNIT/ML 1 ML VIAL ONE; +LIDOCAINE 1% INJ 10MG/ML (20 ML MDV) ONE; +MIDAZOLAM 2 MG/2 ML VIAL ONE; -NITROGLYCERIN SL TABS 0.4 MG TAB SUBLINGUAL PRN; +SODIUM CHLORIDE 0.9% 250 ML BAG ONE; +SODIUM CHLORIDE 0.9% 50 ML BAG IV ONE; +SODIUM CHLORIDE 0.9% 500 ML BAG ONE; +ceFAZolin 1,000 MG VIAL ONE; +ceFAZolin 10 GM VIAL IVPB ONE; +fentaNYL (PF) 50 MCG/ML 2 ML AMP ONE
[2023-12-02] MEDS ORDERED: amLODIPine 5 MG TAB ONE (18:08)
[2023-12-02] MEDS ORDERED: METOPROLOL TARTRATE 25 MG TAB ONE (20:58)
[2023-12-02] MEDS ORDERED: ACETAMINOPHEN TAB 500 MG TAB ONE (21:34)
[2023-12-03] MEDS ORDERED: amLODIPine 5 MG TAB ONE (09:12)
[2023-12-03] MEDS ORDERED: ATORVASTATIN 40 MG TAB ONE (09:12)
[2023-12-03] MEDS ORDERED: METOPROLOL TARTRATE 25 MG TAB ONE (09:12)
--- NOTE | 2023-12-30 09:13 | XR ---
Lazaro Mendez E ID: [id number] : 1950 EXAMINATION TYPE: XR chest 2V DATE OF EXAM: 12/03/2023 COMPARISON: 06/27/2020 HISTORY: 73-year-old male post lead check TECHNIQUE: Frontal and lateral views FINDINGS: Left anterior chest wall pacemaker generator with right atrial and right ventricular leads. Heart nor mal size. There is stringy atelectasis at the left lower lung. No pleural effusion or appreciable pne umothorax. [facility] throughout the thoracic spine. Possible 8 mm pulmonary nodule anterior mid lung on th e lateral view. Not clearly identified on the frontal view. IMPRESSION: 1. Left anterior chest wall pacemaker generator with right atrial and right ventricular leads. No sussy reciable pneumothorax. 2. Possible 8 mm anterior midlung pulmonary nodule seen on the lateral view. Nonemergent follow-up CT chest to assess for any underlying nodules.
== END 2023-12-03 14:15 | disposition home or self-care (01) ==
LOC: OR 14:48 → 6NMEDSUR 14:49 → INTOOBSV 14:49 → UNDODISIN 12-03 14:15
PROVIDERS: ADMIT Internal Medicine; ATTEND Internal Medicine
DX: I44.1 Atrioventricular block, second degree (principal); I08.3 Combined rheumatic disorders of mitral, aortic and tricuspid valves; R91.1 Solitary pulmonary nodule; I25.10 Atherosclerotic heart disease of native coronary artery without angina pectoris; I48.0 Paroxysmal atrial fibrillation; I10 Essential (primary) hypertension; E78.5 Hyperlipidemia, unspecified; G47.33 Obstructive sleep apnea (adult) (pediatric); R00.1 Bradycardia, unspecified; Z95.5 Presence of coronary angioplasty implant and graft; Z79.01 Long term (current) use of anticoagulants; Z79.899 Other long term (current) drug therapy; Z82.49 Family history of ischemic heart disease and other diseases of the circulatory system
CPT/HCPCS: 33208; 71046; G0379; G0378 ×2; C1892; C1898; C1769; C1785; J2250; J1644; J0690 ×2; J2001; J3010

== ENCOUNTER → 2023-12-23 | Outpatient (CLI) | payer OTHER ==
[2023-12-23 11:17] LABS: ALT 30 U/L (4-49); AST 32 U/L (17-59); African American GFR (CKD) >90 (>60 ml/min/1.73 sqM); Albumin 4.1 g/dL (3.5-5.0); Albumin/Globulin Ratio 1.7; Alkaline Phosphatase 70 U/L (38-126); Anion Gap 7 mmol/L; Blood Urea Nitrogen 14 mg/dL (9-20); Calcium 9.5 mg/dL (8.4-10.2); Carbon Dioxide 28 mmol/L (22-30); Chloride 104 mmol/L (98-107); Globulin 2.4 g/dL; Glucose 109 mg/dL (74-99); Non-African American GFR(CKD) 90 (>60 ml/min/1.73 sqM); Sodium 139 mmol/L (137-145); Total Bilirubin 0.6 mg/dL (0.2-1.3); Total Protein 6.5 g/dL (6.3-8.2)
--- NOTE | 2023-12-23 17:47 | CT ---
EXAMINATION TYPE: CT chest w con CT DLP: 542 mGycm, Automated exposure control for dose reduction was used. DATE OF EXAM: 12/23/2023 11:45 AM COMPARISON: CT abdomen and pelvis 11/24/2023, chest radiograph 12/03/2023 CLINICAL INDICATION:Male, 73 years old with history of C64.2 LEFT KIDNEY CANCER; [facility], TECHNIQUE: Multiple axial images were obtained through the chest following the administration of 100 cc of Isovue 300. . Coronal and sagittal reformats reviewed. FINDINGS: LUNGS/ PLEURA: No pleural effusion, pneumothorax, or focal consolidation. Right middle lobe 7 mm calc ified nodule. Probable calcified granuloma or hamartoma. Anterior left upper lobe 4 mm pulmonary nodu le (series 7, image 93). AIRWAY: Patent and unremarkable.. HEART: The heart is mildly increased in size.. No pericardial effusion.Left chest wall dual-lead card iac pacemaker device. MEDIASTINUM: No evidence of adenopathy. VASCULATURE: No aortic aneurysm. Dilated main pulmonary artery measuring up to 3.9 cm MUSCULOSKELETAL: No acute osseous abnormalities. DISH of the thoracic spine. SOFT TISSUES/LYMPH NODES: Unremarkable. LOWER NECK: No significant findings. UPPER ABDOMEN: Periampullary duodenal diverticulum. IMPRESSION: 1. Left upper lobe 4 mm indeterminate pulmonary nodule. No other suspicious pulmonary nodules or lymp hadenopathy identified to suggest metastatic disease. Attention on follow-up exam. 2. Dilated main pulmonary suggesting pulmonary arterial hypertension. 3. Cardiomegaly.
== END | disposition home or self-care (01) ==
LOC: RADCTMAIN 10:16
PROVIDERS: ATTEND Urology
DX: C64.2 Malignant neoplasm of left kidney, except renal pelvis (principal); I51.7 Cardiomegaly
CPT/HCPCS: 80053; 71260; 36415; Q9967

== ENCOUNTER → 2023-12-28 | Outpatient (CLI) | payer OTHER ==
[2023-12-28 16:58] LABS: Basophils # (A) 0.05 X 10*3/uL (0.00-0.10); Basophils % (A) 0.9 %; Eosinophils # (A) 0.22 X 10*3/uL (0.04-0.35); Eosinophils % (A) 3.8 %; HCT 43.3 % (39.6-50.0); Lymphocytes # (A) 1.65 X 10*3/uL (0.90-5.00); Lymphocytes % (A) 28.6 %; MCH 31.2 pg (27.0-32.0); MCHC 34.6 g/dL (32.0-37.0); Mean Platelet Volume 9.9 FL (9.5-12.2); Monocytes # (A) 0.45 X 10*3/uL (0.20-1.00); Monocytes % (A) 7.8 %; NRBC Per 100 WBC 0 X 10*3/uL (0.00-0.01); Neutrophils # (A) 3.38 X 10*3/uL (1.80-7.70); Neutrophils % (A) 58.6 %; Platelet Count 210 X 10*3/uL (140-440); RBC 4.81 X 10*6/uL (4.40-5.60); RDW 12.9 % (11.5-14.5); WBC 5.77 X 10*3/uL (4.50-10.00)
== END | disposition home or self-care (01) ==
LOC: LABPAT 13:03
PROVIDERS: ATTEND Urology
DX: D41.02 Neoplasm of uncertain behavior of left kidney (principal)
CPT/HCPCS: 36415; 85025; 86850; 86900; 86901

== ENCOUNTER 2023-12-31 08:40 | Inpatient (IN) | payer OTHER ==
--- NOTE | 2023-12-29 13:26 | P.GSHP ---
History of Present Illness H&P Date: 12/29/23 Chief Complaint: Left renal mass The patient is a 73-year-old white male with a long history of left-sided scrotal varices, which have increased in size over the past year. There is no change in the varices whether the patient is standing or lying supine. Varices of the left lower extremity were also noted, and the patient was referred to vascular surgery. He ultimately underwent a CT scan of the abdomen and pelvis, revealing a 7.9 cm left lower pole solid renal mass. I have reviewed the images with radiology, who does not feel that there is a renal vein thrombus. The metastatic evaluation is negative, and the patient has been advised to undergo a left radical nephrectomy. - Cardiovascular Cardiovascular: Reports high blood pressure, Reports irregular heart beat - Genitourinary (Male) Genitourinary: Denies flank pain, Denies hematuria Past Medical History Past Medical History: Atrial Fibrillation, Coronary Artery Disease (CAD), Hyperlipidemia, Hypertension Additional Past Medical History / Comment(s): aortic valve regurgitation, 7 benign colon polyps removed, Lt. kidney cancer History of Any Multi-Drug Resistant Organisms: None Reported Past Surgical History: Heart Catheterization With Stent, Orthopedic Surgery, Pacemaker Additional Past Surgical History / Comment(s): arthroscopy lucila knees, 4 cardiac stents 2011, left rotator cuff repair, colonoscopy., Cardioversion/MYAH, PPM 12/04 Past Anesthesia/Blood Transfusion Reactions: No Reported Reaction Date of Last Stent Placement:: 2011 Type of Cardiac Device: Permanent Pacemaker Device Placement Date:: 12/02/23 Smoking Status: Never smoker - Past Family History Father Family Medical History: Cancer, CVA/TIA, Myocardial Infarction ([place]) Additional Family Medical History / Comment(s): lung cancer, [place] at 55 yrs old Mother Family Medical History: No Reported History Additional Family Medical History / Comment(s): lived to age 99.5 yrs Brother(s) Family Medical History: Cancer Additional Family Medical History / Comment(s): prostate cancer, Parkinson's Medications and Allergies Home Medications Medication Instructions Recorded Confirmed Type Atorvastatin [Lipitor] 40 mg PO HS 07/19/15 12/28/23 History Apixaban [Eliquis] 5 mg PO BID 07/30/21 12/28/23 History Nitroglycerin Sl Tabs [Nitrostat] 0.4 mg SUBLINGUAL Q5M PRN 05/05/22 12/28/23 History Cholecalciferol (Vitamin D3) 125 mcg PO Q48H 08/13/23 12/28/23 History [Vitamin D3 (125 MCG = 5,000 IU)] amLODIPine [Norvasc] 5 mg PO DAILY #90 tab 08/17/23 12/28/23 Rx Allergies Allergy/AdvReac Type Severity Reaction Status Date / Time No Known Allergies Allergy Verified 08/17/23 10:51 Surgical - Exam - General well developed, well nourished, no distress - Neck no masses, trachea midline - Respiratory normal respiratory effort - Abdomen Abdomen: soft, non tender, no guarding, no rigid, no rebound - Genitourinary Normal phallus, normal testes. Large left-sided scrotal varices are noted. - Psychiatric oriented to time, oriented to person, oriented to place, speech is normal, memory intact Results - Imaging CT scan - abdomen: report reviewed, image reviewed Assessment and Plan (1) Neoplasm of uncertain behavior of left kidney Status: Acute Code(s): D41.02 - NEOPLASM OF UNCERTAIN BEHAVIOR OF LEFT KIDNEY SNOMED Code(s): 017212537709863 Plan: Open left radical nephrectomy. The procedure has been reviewed in detail with the patient and his . They have been made aware of potential risks, which i nclude anesthesia, bleeding, infection, bowel injury, splenic injury, and postoperative paralytic ileus.
[~2023-12-31 08:40] MED LIST changes: -HEPARIN SODIUM,PORCINE 5,000 UNIT/ML 1 ML VIAL ONE; +HYDROmorphone 0.5 MG/0.5 ML SYRINGE IVP PRN; +LIDOCAINE 1% (10MG/ML) FOR IV START INTRADERMA PRN; -LIDOCAINE 1% INJ 10MG/ML (20 ML MDV) ONE; -MIDAZOLAM 2 MG/2 ML VIAL ONE; -SODIUM CHLORIDE 0.9% 250 ML BAG ONE; -SODIUM CHLORIDE 0.9% 50 ML BAG IV ONE; -SODIUM CHLORIDE 0.9% 500 ML BAG ONE; -ceFAZolin 1,000 MG VIAL ONE; -ceFAZolin 10 GM VIAL IVPB ONE; -fentaNYL (PF) 50 MCG/ML 2 ML AMP ONE
[2023-12-31] MEDS: IV FLUID CONTINUATION 1,000 ML IV ONE ×3 (09:39→13:42)
[2023-12-31] MEDS: LACTATED RINGERS 1,000 ML IV SCH (09:40)
[2023-12-31] MEDS: DEXAMETHASONE SOD PHOSPHATE 4 MG/ML 1 ML VIAL IV ONE (10:03)
[2023-12-31] MEDS: ONDANSETRON 4 MG/2 ML VIAL IVP ONE (10:04)
[2023-12-31] MEDS: fentaNYL (PF) 50 MCG/ML 2 ML AMP IVP PRN (10:14)
[2023-12-31] MEDS: MIDAZOLAM 2 MG/2 ML VIAL IV PRN (10:14)
[2023-12-31] MEDS ORDERED: MIDAZOLAM 2 MG/2 ML VIAL ONE (10:41)
[2023-12-31] MEDS ORDERED: NEOSTIGMINE 1 MG/ML 10 ML VIAL ONE (10:41)
[2023-12-31] MEDS ORDERED: PHENYLEPHRINE 10 MG/ML 5 ML VIAL ONE (10:41)
[2023-12-31] MEDS ORDERED: ROCURONIUM 10 MG/ML (5 ML VIAL) IV ONE (10:41)
[2023-12-31] MEDS ORDERED: HYDROmorphone (PF) 1 MG/ML ONE (10:41)
[2023-12-31] MEDS ORDERED: LIDOCAINE 1% INJ 10MG/ML (20 ML MDV) ONE (10:41)
[2023-12-31] MEDS ORDERED: fentaNYL (PF) 50 MCG/ML 2 ML AMP ONE (10:41)
[2023-12-31] MEDS ORDERED: SUCCINYLCHOLINE CHLORIDE 200 MG/10 ML VIAL IV ONE (10:41)
[2023-12-31] MEDS ORDERED: GLYCOPYRROLATE 0.2 MG/ML 2 ML VIAL ONE (10:41)
[2023-12-31] MEDS ORDERED: PROPOFOL 10 MG/ML 20 ML VIAL IV ONE (10:41)
[2023-12-31] MEDS ORDERED: NALOXONE 0.4 MG/ML 1 ML VIAL IV PRN (10:44)
[2023-12-31] MEDS ORDERED: ROPIVACAINE 250 MG, HYDROMORPHONE (PF) 5 MG in SODIUM CHLORIDE 0.9% 200 ML EPIDURAL PRN (10:44)
--- NOTE | 2023-12-31 10:44 | P.ANPRN ---
Procedure Note - Anesthesia - Epidural/Spinal Epidural Continuous Date of Procedure: 12/31/23 Procedure Start Time: 10:07 Procedure Stop Time: 10:25 Location of Patient: PreOp Indication: Acute Post-Operative Pain Sedation Type: Sedate with meaningful contact maintained Preparation: Sterile Dressing Position: Sitting Catheter Depth at Skin (cm): 10 Catheter: Indwelling Injectate: 1.5% lidocaine + epinephrine 1,200K 2cc Narrative: The benefits and risks of the procedure was explained to the patient and informed consent was obtained. After proper positioning, T10-11 Space identified and cleaned with Betadine and iodine solution. 2 mL of 1% lidocaine was thoroughly infiltrated into the above mentioned space after draping the the area. 18-gauge Tuhoy needle was inserted into the space and loss of resistance to air was obtained at 6 cm depth. Next, an epidural catheter was threaded through the needle into this space and negative aspiration for any blood or CSF noted. Test dose was given and no untoward reactions noted. Epidural was secured and taped. Patient tolerated the procedure very well. Blood Aspirated: No Pain Paresthesia on Injection Noted: No Events: Uneventful and Well Tolerated
--- NOTE | 2023-12-31 13:35 | P.OP ---
Date of Procedure: 12/31/23 Preoperative Diagnosis: Left renal mass Postoperative Diagnosis: Same Procedure(s) Performed: Left radical nephrectomy Anesthesia: ROBERT Surgeon: Brad Reyes [employer] #1: Herman Ward Estimated Blood Loss (ml): 100 IV fluids (ml): 1,300 Pathology: other (Left kidney) Condition: stable Disposition: PACU Indications for Procedure: The patient is a 73-year-old white male with a long history of left-sided scrotal varices, which have increased in size over the past year. There is no change in the varices whether the patient is standing or lying supine. Varices of the left lower extremity were also noted, and the patient was referred to vascular surgery. He ultimately underwent a CT scan of the abdomen and pelvis, revealing a 7.9 cm left lower pole solid renal mass. I have reviewed the images with radiology, who does not feel that there is a renal vein thrombus. The metastatic evaluation is negative, and the patient has been advised to undergo a left radical nephrectomy. Operative Findings: Large left lower pole renal mass. No evidence of extrarenal disease. An adrenalectomy was not performed. Description of Procedure: The patient was taken to the operating room and placed in the supine position. After being given general anesthesia, the abdomen was prepped and draped sterilely. A left sided chevron incision was made using the scalpel. The Bovie electrocautery was used to incise the subcutaneous tissues and muscular layers of the abdominal wall down to the peritoneum. The peritoneum was then carefully entered, and opened the full length of the incision. Note was made of the fact that the abdominal wall musculature was poorly developed, and that the rectus abdominis muscles were notably far apart. The abdomen was examined, and no abnormalities were noted other than the renal mass. Specifically, there was no evidence of malignancy elsewhere within the abdomen. The Bookwalter retractor was used for exposure. The peritoneum was incised at the line of Toldt, allowing the left hemicolon to be mobilized medially off of Gerota's fascia. This was done until the aorta was exposed anteriorly. The left renal vein was identified at this time. The tail of Gerota's fascia was isolated inferiorly, and both the ureter and gonadal veins were identified. The ureter was clipped, the gonadal vein was ligated, and both were divided. Blunt dissection was then performed to dissect the kidney off of the posterior abdominal wall. Dissection then continued along the aorta inferiorly. Fibroadipose tissue was clipped prior to dividing it, up to the renal hilum. There was no evidence of adenopathy. The left renal vein was isolated. There was no thrombus within the vein. The left renal artery was identified posterior to the vein. It was isolated and ligated using a 2-0 silk tie. The adrenal vein was isolated, ligated, and divided as it inserted into the left renal vein. The left renal vein was then likewise ligated twice proximally and distally. After dividing the left renal vein, the left renal artery was ligated 2 more times, twice proximally and once distally prior to dividing it. The remaining hilar tissues were clipped and divided at this time. Attention was then paid superiorly. Because it was a lower pole tumor, the decision was made not to perform an adrenalectomy. The perinephric fat was incised over the upper pole of the kidney and down to the kidney. Once all attachments were divided, the specimen was removed and the surgical field was examined for hemostasis. A small portion of the adrenal gland had been excised, and some oozing arose from the adrenal gland. This was controlled using a 3-0 silk suture. Hemostasis throughout the remainder of the surgical field was excellent. Surgicel was placed over the adrenal gland, and after observing the adrenal gland and verifying that there was no active bleeding the Bookwalter retractor was removed. The abdominal contents were allowed to return to their normal location. Each individual muscle layer of the anterior abdominal wall was closed using #1 Vicryl suture in a running fashion. Hemostasis within the subcutaneous tissues was excellent. The skin was closed using lynn. A sterile gauze dressing was applied over the incision. All sponge and needle counts were correct. The patient tolerated the procedure well was taken to the recovery room in stable condition.
[2023-12-31] MEDS ORDERED: NITROGLYCERIN SL TABS 0.4 MG TAB SUBLINGUAL PRN (13:36)
[2023-12-31] MEDS: ONDANSETRON 4 MG/2 ML VIAL IVP PRN (17:46)
[2023-12-31] MEDS: HEPARIN SODIUM,PORCINE 5,000 UNIT/ML 1 ML VIAL SQ SCH (21:28)
[2023-12-31] MEDS: ATORVASTATIN 40 MG TAB PO SCH (21:28)
[2023-12-31] MEDS: DEXTROSE 5%-0.45% NACL 1,000 ML IV SCH (21:30)
--- NOTE | 2024-01-01 07:23 | P.PN ---
Progress Note - Text 01/01/24 631am 73-year-old male status post nephrectomy. Patient has an epidural with a solution running at 40 cc an hour with a VAS of 0. No motor or sensory deficit noted. Patient is complaining of vision problem when he watched television. He could otherwise see clearly but the screen on the television seem to move down for him. I talked to the nurse on night call, I asked her to get ophthalmology consult and I will inform Dr. Reyes
[2024-01-01] MEDS: amLODIPine 5 MG TAB PO SCH (08:16)
--- NOTE | 2024-01-01 08:18 | P.PN ---
Subjective Progress Note Date: 01/01/24 the patient is in his first postoperative day from a left radical nephrectomy for renal cell carcinoma. He is doing well other than some nausea. His abdomen is soft. Urine output is good. His vital signs are stable. His wounds look good. He has an epidural which controlling his pain. He will ambulate today. We will continue with limited diet. We'll continue with epidural. Condition is good. Objective - Vital Signs Vital signs: Vital Signs Temp 98.1 F 01/01/24 02:40 Pulse 75 01/01/24 02:40 Resp 16 01/01/24 02:40 BP 149/70 01/01/24 02:40 Pulse Ox 95 01/01/24 02:40 FiO2 Intake & Output 12/31/23 01/01/24 01/01/24 18:59 06:59 18:59 Intake Total 2070 Output Total 400 850 Balance 1670 -850 Weight 98.6 kg Intake: IV 1950 Oral 120 Output: Urine 400 850 Other: Voiding Method Indwelling Catheter # Voids 6 # Emeses 3
[2024-01-01 10:50] LABS: HCT 40.4 % (39.6-50.0); HGB 13.4 g/dL (13.0-17.0); MCHC 33.2 g/dL (32.0-37.0); MCV 93.5 FL (80.0-97.0); Mean Platelet Volume 9.8 FL (9.5-12.2); NRBC Per 100 WBC 0 X 10*3/uL (0.00-0.01); Platelet Count 196 X 10*3/uL (140-440); RBC 4.32 X 10*6/uL (4.40-5.60); RDW 13.2 % (11.5-14.5); WBC 13.54 X 10*3/uL (4.50-10.00)
[2024-01-01 11:22] LABS: BUN/Creat Ratio 19.38 Ratio (12.00-20.00); Calcium 8.9 mg/dL (8.7-10.3); Chloride 103 mmol/L (96-109); Glucose 160 mg/dL (70-110); Potassium 5.1 mmol/L (3.5-5.5); Sodium 139 mmol/L (135-145)
[2024-01-01 11:24] LABS: Basophils # (A) 0.01 X 10*3/uL (0.00-0.10); Basophils % (A) 0.1 %; Eosinophils # (A) 0 X 10*3/uL (0.04-0.35); Eosinophils % (A) 0 %; Lymphocytes # (A) 0.66 X 10*3/uL (0.90-5.00); Lymphocytes % (A) 4.9 %; Monocytes # (A) 1.87 X 10*3/uL (0.20-1.00); Monocytes % (A) 13.8 %; Neutrophils % (A) 80.5 %
[2024-01-02] MEDS ORDERED: KETOROLAC 15 MG/ML 1 ML VIAL IVP PRN (12:58)
[2024-01-02] MEDS ORDERED: HYDROcodone/APAP 5-325MG 1 EACH TAB PO PRN (12:58)
--- NOTE | 2024-01-02 13:01 | P.PN ---
Subjective Progress Note Date: 01/02/24 the patient is in his second postoperative day from a left radical nephrectomy. He is doing well. The nausea has dissipated. Vital signs are stable. His urine output is good. His pain is under control. He has eaten. He has sat in the chair. Objective - Vital Signs Vital signs: Vital Signs Temp 98.8 F 01/02/24 07:38 Pulse 88 01/02/24 07:38 Resp 17 01/02/24 07:38 BP 162/68 01/02/24 07:38 Pulse Ox 90 L 01/02/24 07:38 FiO2 Intake & Output 01/01/24 01/02/24 01/02/24 18:59 06:59 18:59 Intake Total 900 Output Total 800 300 Balance -800 600 Intake: Intake, IV Titration 900 Amount Dextrose 5%-0.45% NaCl 1, 900 000 ml @ 75 mls/hr IV . [id number] [id number] Rx#:[id number] Output: Urine 800 300 Other: Voiding Method Indwelling Catheter Indwelling Catheter Indwelling Catheter - Gastrointestinal Gastrointestinal Comment(s): soft, nontender, dry dressing - Musculoskeletal Musculoskeletal Comment(s): evidence of swelling or phlebitis - Labs CBC & Chem 7: 01/01/24 06:28 01/01/24 07:45 Assessment and Plan Assessment: impression: Postoperative day #2 left radical nephrectomy, progressing nicely and recommendations: I will discontinue the epidural the Chauhan catheter continue with diet ambulate. If he does well he probably can be discharged home within 24 hours.
--- NOTE | 2024-01-02 15:01 | P.PN ---
Progress Note - Text Progress Note Date: 01/02/24 73-year-old male status post nephrectomy. Postop day 2 patient has an epidural with a solution running at 40 cc an hour with a VAS of 0. No motor or sensory deficit noted. Patient doing very well epidural catheter discontinued, epidural site okay, patient had no headache, patient will be started on oral pain medication as per surgical team
[2024-01-02] MEDS: ACETAMINOPHEN TAB 325 MG TAB PO PRN (16:18)
--- NOTE | 2024-01-03 09:54 | P.PN ---
Subjective Progress Note Date: 01/03/24 Status post left radical nephrectomy, Chauhan catheter in epidural was removed yesterday. Patient is complaining of abdominal distention poor appetite, has not passed any gas since surgery. His pain is controlled with the current regimen. Objective - Vital Signs Vital signs: Vital Signs Temp 98.8 F 01/03/24 07:07 Pulse 99 01/03/24 07:07 Resp 17 01/03/24 07:07 BP 191/86 01/03/24 07:07 Pulse Ox 92 L 01/03/24 07:07 FiO2 Intake & Output 01/02/24 01/03/24 01/03/24 18:59 06:59 18:59 Intake Total 1500 Output Total 2100 900 300 Balance -2100 600 -300 Intake: Oral 1500 Output: Urine 2100 900 300 Uretheral (Chauhan) 900 Other: Voiding Method Indwelling Catheter - Constitutional General appearance: Present: no acute distress - Gastrointestinal General gastrointestinal: Present: distended, soft. Absent: tenderness - Psychiatric Psychiatric: Present: A&O x's 3 - Labs CBC & Chem 7: 01/01/24 06:28 01/01/24 07:45 Assessment and Plan Assessment: 73-year-old male status post left open radical nephrectomy, is having a postop ileus at this time. -Pain control -Encourage ambulation -Will reassess tomorrow
--- NOTE | 2024-01-04 07:00 | P.CONS ---
History of Present Illness - Reason for Consult Consult date: 01/04/24 - History of Present Illness Patient is a 73-year-old male with a PMH of CAD, A-fib on Eliquis, hypertension, and hyperlipidemia who was admitted for a scheduled left radical nephrectomy. The patient was undergoing workup for left sided varices when a CT abdomen and pelvis had revealed a 7.9 cm renal mass. The patient was subsequently scheduled for the above procedure which she underwent on 12/30 with no immediate post operative complications noted. We were consulted earlier today for management of persistently elevated blood pressure. The patient reported feeling well at the time of interview and had no active complaints. He reports being pain-free for the past 2 days and the only complaint was mild abdominal bloating. He denied experiencing chest discomfort, shortness breath, fever, chills, cough, nausea, vomiting. Patient reports compliance with his Norvasc 5 mg p.o. daily at home. The patient's BP over the last 2 days has been persistently elevated with SBP in the 170s. BMP following hospitalization notable for BUN 31 creatinine 1.06 (baseline 1.0). Procalcitonin was 13.54. Review of systems: Pertinent positives and negatives as discussed in HPI, a complete review of systems was performed and all other systems are negative. Physical examination: Vital signs reviewed General: non toxic, no distress, appears at stated age, obese Derm: no unusual rashes/lesions, warm Head: atraumatic, normocephalic, symmetric Eyes: EOMI, no lid lag, anicteric sclera, pupils equal round reactive to light ENT: Nose and ears atraumatic Neck: No cervical lymphadenopathy, trachea midline, supple Mouth: no lip lesion, mucus membranes moist Cardiovascular: S1S2 reg, grade 3 systolic murmur appreciated, positive dorsalis pedis pulse bilateral, no edema Lungs: CTA bilateral, no rhonchi, no rales, no accessory muscle use Abdominal: soft, dressings in place, no guarding Ext: muscle strength 5 out of 5 in all 4 extremities grossly, no gross muscle atrophy, no contractures, Neuro: CN II-XI grossly intact, no gross focal neuro deficits Psych: Alert, oriented, appropriate affect Assessment: Uncontrolled hypertension Kidney disease, acute versus chronic Status post left radical nephrectomy Chronic conditions: CAD, A-fib, hypertension, hyperkalemia Plan: Increase patient's Norvasc dose to 10 mg p.o. daily Obtain repeat BMP and consider initiating JODY-I/ARB pending improved kidney function Patient's Eliquis currently being held by primary team and is receiving heparin subcu every 12 hourly for DVT prophylaxis Defer management of pain control. DVT prophylaxis to the primary surgery service Past Medical History Past Medical History: Atrial Fibrillation, Coronary Artery Disease (CAD), Hyperlipidemia, Hypertension Additional Past Medical History / Comment(s): aortic valve regurgitation, 7 benign colon polyps removed, Lt. kidney cancer History of Any Multi-Drug Resistant Organisms: None Reported Past Surgical History: Heart Catheterization With Stent, Orthopedic Surgery, Pa monserrat Additional Past Surgical History / Comment(s): arthroscopy lucila knees, 4 cardiac stents 2011, left rotator cuff repair, colonoscopy., Cardioversion/MYAH, PPM 12/04 Past Anesthesia/Blood Transfusion Reactions: No Reported Reaction Date of Last Stent Placement:: 2011 Type of Cardiac Device: Permanent Pacemaker Device Placement Date:: 12/02/23 Past Psychological History: No Psychological Hx Reported Additional Psychological History / Comment(s): Pt resides with spouse Smoking Status: Never smoker Past Alcohol Use History: Occasional Additional Past Alcohol Use History / Comment(s): 6 drinks per week Past Drug Use History: None Reported - Past Family History Father Family Medical History: Cancer, CVA/TIA, Myocardial Infarction ([place]) Additional Family Medical History / Comment(s): lung cancer, [place] at 55 yrs old Mother Family Medical History: No Reported History Additional Family Medical History / Comment(s): lived to age 99.5 yrs Brother(s) Family Medical History: Cancer Additional Family Medical History / Comment(s): prostate cancer, Parkinson's Medications and Allergies Home Medications Medication Instructions Recorded Confirmed Type Atorvastatin [Lipitor] 40 mg PO HS 07/19/15 12/31/23 History Apixaban [Eliquis] 5 mg PO BID 07/30/21 12/31/23 History Nitroglycerin Sl Tabs [Nitrostat] 0.4 mg SUBLINGUAL Q5M PRN 05/05/22 12/31/23 History Cholecalciferol (Vitamin D3) 125 mcg PO Q48H 08/13/23 12/28/23 History [Vitamin D3 (125 MCG = 5,000 IU)] amLODIPine [Norvasc] 5 mg PO DAILY #90 tab 08/17/23 12/31/23 Rx Allergies Allergy/AdvReac Type Severity Reaction Status Date / Time No Known Allergies Allergy Verified 12/31/23 09:37 Physical Exam Vitals: Vital Signs Temp Pulse Resp BP BP Pulse Ox 01/04/24 02:04 98.5 F 85 16 170/72 94 L 01/03/24 22:10 98.7 F 80 14 142/75 92 L 01/03/24 20:40 15 01/03/24 20:08 99.2 F 92 15 175/78 94 L 01/03/24 14:34 98.9 F 79 17 164/75 93 L 01/03/24 07:07 98.8 F 99 17 191/86 92 L Intake and Output 01/03/24 01/03/24 01/04/24 14:59 22:59 06:59 Output Total 300 1000 Balance -300 -1000 Output: Urine 300 1000 Other: Voiding Method Urinal Toilet Urinal # Voids 2 Results CBC & Chem 7: 01/01/24 06:28 01/01/24 07:45
[2024-01-04] MEDS: amLODIPine 10 MG TAB PO SCH (08:18)
[2024-01-04 08:37] LABS: Basophils # (A) 0.04 X 10*3/uL (0.00-0.10); Basophils % (A) 0.4 %; Eosinophils # (A) 0.12 X 10*3/uL (0.04-0.35); Eosinophils % (A) 1.3 %; HCT 37.5 % (39.6-50.0); HGB 13.5 g/dL (13.0-17.0); Lymphocytes % (A) 9.6 %; MCH 31.9 pg (27.0-32.0); MCV 88.7 FL (80.0-97.0); Mean Platelet Volume 10.1 FL (9.5-12.2); Monocytes # (A) 1.42 X 10*3/uL (0.20-1.00); Monocytes % (A) 15.1 %; NRBC Per 100 WBC 0 X 10*3/uL (0.00-0.01); Neutrophils # (A) 6.88 X 10*3/uL (1.80-7.70); Neutrophils % (A) 73.2 %; Platelet Count 190 X 10*3/uL (140-440); RBC 4.23 X 10*6/uL (4.40-5.60); RDW 12.6 % (11.5-14.5)
[2024-01-04 09:04] LABS: ALT 41 U/L (10-49); AST 63 U/L (14-35); Albumin 3.6 g/dL (3.8-4.9); Albumin/Globulin Ratio 1.64 Ratio (1.60-3.17); Alkaline Phosphatase 51 U/L (41-126); BUN/Creat Ratio 21.55 Ratio (12.00-20.00); Blood Urea Nitrogen 23.7 mg/dL (9.0-27.0); Calcium 8.4 mg/dL (8.7-10.3); Carbon Dioxide 23.3 mmol/L (21.6-31.8); Chloride 98 mmol/L (96-109); Globulin 2.2 g/dL (1.6-3.3); Glucose 123 mg/dL (70-110); Potassium 3.6 mmol/L (3.5-5.5); Sodium 133 mmol/L (135-145); Total Bilirubin 0.8 mg/dL (0.3-1.2); Total Protein 5.8 g/dL (6.2-8.2)
--- NOTE | 2024-01-04 11:53 | P.PN ---
Progress Note - Text Progress Note Date: 01/04/24 Patient seen and examined, no acute complaint. Blood pressure currently controlled. Norvasc increased to 10 mg, will continue. Renal failure likely acute, creatinine back to 1.1 today. Recheck labs in AM.
[2024-01-04 13:51] VITALS: BP 158/71; PULSE 86; RESP 17; TEMP 98.4
--- NOTE | 2024-01-04 15:22 | CDI ---
Documentation Clarification Form Date: 01/04/2024 02:58:03 PM From: Amie Guajardo RN CCDS Phone: [phone] Admit Date: 12/31/2023 08:40:00 AM Patient Name: Lazaro Mendez Visit Number: [id number] Discharge Date: ATTENTION: The Clinical Documentation Specialists (CDI) and [facility] Coding Staff appreciate your assistance in clarifying documentation. Please respond to the clarification below the line at the bottom and electronically sign. The CDI & [facility] Coding staff will review the response and follow-up if needed. Please note: Queries are made part of the Legal Health Record. If you have any questions, please contact the author of this message via ITS. Doctor: Brad Reyes Postop Ileus is documented 01/02, Urology note and patient had Left open radical nephrectomy. Additional clarification is requested regarding the relationship, if any, that exists between the diagnosis and the procedure. Patients Admitting Diagnosis: Left renal mass Post-Operative Diagnosis: Left radical nephrectomy Procedure performed: Left radical nephrectomy History/Risk Factors: 73 year old male presents to [facility] for elective Nephrectomy. Medical History: CAD, HTN, HLD, Left kidney cancer and Atrial fibrillation. 12/28, [facility] Clinical Indicators 01/02, Nephrology note: General gastrointestinal: present distended, soft. Absent tenderness. 01/01, Anesthesia note: Epidural was discontinued Treatment: Encourage ambulation What relationship, if any, exists between the diagnosis of Post op ileus and the procedure: [ ] Post op ileus is a complication of surgical procedure [ X] Post op ileus is an expected outcome of the surgical procedure [ ] Post op ileus is related to patients co-morbid condition(s) & not a complication of the procedure [ ] Post op ileus has been ruled out [ ] Other please specify ____ [ ] Unable to determine (Template Last Revised: June 2020) MTDD
--- NOTE | 2024-01-05 14:31 | P.DS ---
Providers Date of admission: 12/31/23 08:40 Attending physician: Brad Reyes Consults: 01/04/24 05:30 Consult Physician Routine Consulting Provider: Gerry Russell Consult Reason/Comments: elevated blood pressure Do you want consulting provider notified?: Already Contacted Primary care physician: [facility] Hospital Course: This is a 73-year-old male with a history of left-sided renal mass. Underwent an open left-sided radical nephrectomy with Dr. Reyes, see op note dated December 30 for surgery details. Patient was admitted to the hospital postoperatively. His [place] catheter and epidural was removed on postop day #2. He did have elevation in his blood pressure and medical services was consulted on postop day #3. He was discharged home on postop day #4 following evaluation by internal medicine. He was deemed stable for discharge from their point. At time of discharge he was tolerating a diet, ambulating, pain was controlled. He will follow-up in 1 week for a staple removal Plan - Discharge Summary Discharge Rx Participant: Yes New Discharge Prescriptions: New HYDROcodone/APAP 5-325MG [[place] 5-325] 1 tab PO Q4HR PRN 3 Days #18 tab PRN Reason: Pain No Action Atorvastatin [Lipitor] 40 mg PO HS Nitroglycerin Sl Tabs [Nitrostat] 0.4 mg SUBLINGUAL Q5M PRN PRN Reason: Chest Pain Cholecalciferol (Vitamin D3) [Vitamin D3 (125 MCG = 5,000 IU)] 125 mcg PO Q48H Apixaban [Eliquis] 5 mg PO BID amLODIPine [Norvasc] 5 mg PO DAILY #90 tab Discharge Medication List Atorvastatin [Lipitor] 40 mg PO HS 07/19/15 [History] Apixaban [Eliquis] 5 mg PO BID 07/30/21 [History] Nitroglycerin Sl Tabs [Nitrostat] 0.4 mg SUBLINGUAL Q5M PRN 05/05/22 [History] Cholecalciferol (Vitamin D3) [Vitamin D3 (125 MCG = 5,000 IU)] 125 mcg PO Q48H 08/13/23 [History] amLODIPine [Norvasc] 5 mg PO DAILY #90 tab 08/17/23 [Rx] HYDROcodone/APAP 5-325MG [[place] 5-325] 1 tab PO Q4HR PRN 3 Days #18 tab 01/04/24 [Rx] Follow up Appointment(s)/Referral(s): Jj Lloyd MD [STAFF PHYSICIAN] - 01/11/24 1:00 pm Activity/Diet/Wound Care/Special Instructions: You can restart your eliquis today No heavy lifting or straining for 4 weeks Discharge Disposition: HOME SELF-CARE
== END 2024-01-04 15:52 | disposition home or self-care (01) | DRG 657 ==
LOC: 2ORMAIN 08:40 → 4SSUR 14:09
PROVIDERS: ADMIT Urology; ATTEND Urology
PROC: 0TT10ZZ Resection of Left Kidney, Open Approach (ICD-10-PCS; principal; 2023-12-31 10:30)
DX: C64.2 Malignant neoplasm of left kidney, except renal pelvis (principal); K56.7 Ileus, unspecified; N17.9 Acute kidney failure, unspecified; E78.5 Hyperlipidemia, unspecified; I10 Essential (primary) hypertension; I25.10 Atherosclerotic heart disease of native coronary artery without angina pectoris; I48.91 Unspecified atrial fibrillation; I35.1 Nonrheumatic aortic (valve) insufficiency; Z79.899 Other long term (current) drug therapy; Z79.01 Long term (current) use of anticoagulants; Z95.5 Presence of coronary angioplasty implant and graft
CPT/HCPCS: 80048; 80053; 85025; 88307; 94760

== ENCOUNTER → 2024-06-11 | Outpatient (CLI) | payer MEDICARE ==
--- NOTE | 2024-06-11 08:57 | XR ---
EXAMINATION TYPE: XR chest 2V DATE OF EXAM: 06/11/2024 8:43 AM COMPARISON: Chest radiographs from 12/30/2023, CT chest 12/23/2023 TECHNIQUE: XR chest 2V Frontal and lateral views of the chest. CLINICAL INDICATION:Male, 74 years old with history of C64.2 MALIGNANT NEOPLASM OF LEFT KIDNEY, EXCEP T RE; FINDINGS: Lungs/Pleura: There is no evidence of pleural effusion, focal consolidation, or pneumothorax. Right middle lobe 7 mm calcified granuloma redemonstrated. Best appreciated on the lateral view. Pulmonary vascularity: Unremarkable. Heart/mediastinum: Cardiomediastinal silhouette is enlarged and stable. Two lead cardiac conduction d evice overlying the left hemithorax with lead tips projecting over the right ventricle and right atri um. Musculoskeletal: Multiple level degenerative disc disease changes seen throughout the spine. IMPRESSION: No acute cardiopulmonary disease/process. [facility], , 06/11/2024 8:54 AM
[2024-06-12 07:15] LABS: ALT 31 U/L (10-49); AST 26 U/L (14-35); Albumin 4.4 g/dL (3.8-4.9); Albumin/Globulin Ratio 1.91 Ratio (1.60-3.17); Alkaline Phosphatase 82 U/L (41-126); BUN/Creat Ratio 12.93 Ratio (12.00-20.00); Blood Urea Nitrogen 19.4 mg/dL (9.0-27.0); Calcium 9.6 mg/dL (8.7-10.3); Carbon Dioxide 25.7 mmol/L (21.6-31.8); Chloride 103 mmol/L (96-109); Globulin 2.3 g/dL (1.6-3.3); Glucose 117 mg/dL (70-110); Potassium 4.7 mmol/L (3.5-5.5); Sodium 139 mmol/L (135-145); Total Bilirubin 0.4 mg/dL (0.3-1.2); Total Protein 6.7 g/dL (6.2-8.2)
== END | disposition home or self-care (01) ==
LOC: LABWHC1 08:05
PROVIDERS: ATTEND Urology
DX: C64.2 Malignant neoplasm of left kidney, except renal pelvis (principal); Z85.528 Personal history of other malignant neoplasm of kidney
CPT/HCPCS: 36415; 71046; 80053

== ENCOUNTER → 2024-07-04 | Outpatient (CLI) | payer MEDICARE | END | disposition home or self-care (01) | LOC: LABWHC1 16:12 | PROVIDERS: ATTEND Nurse Practitioner Acute Care | DX: R97.20 Elevated prostate specific antigen [PSA] (principal) | CPT/HCPCS: 36415; 84153 ==